=== PATIENT | female | born 1970 | race African-American/Black ===

== ENCOUNTER 2016-12-07 15:32 | Emergency (ER) | payer MEDICAID ==
[~2016-12-07] VITALS: Ht 165.1 cm; Wt 98.0 kg
[~2016-12-07 15:32] MED LIST: ACET-3161 GT; DICL50TA9 PO; HYDR-523 PO; IBUP-1510 PO; TRAM50TA3 PO
[2016-12-07] MEDS ORDERED: KETOROLAC 60MG/2ML VIAL IM ONE (22:15)
[2016-12-07 23:38] VITALS: BP 146/82
== END 2016-12-07 23:39 | disposition home or self-care (01) ==
LOC: ER 21:35
DX: S46.911A Strain of unspecified muscle, fascia and tendon at shoulder and upper arm level, right arm, initial encounter (principal); S29.012A Strain of muscle and tendon of back wall of thorax, initial encounter; G89.29 Other chronic pain; M19.90 Unspecified osteoarthritis, unspecified site; F17.210 Nicotine dependence, cigarettes, uncomplicated; F12.10 Cannabis abuse, uncomplicated; X58.XXXA Exposure to other specified factors, initial encounter; Y93.89 Activity, other specified; Y92.018 Other place in single-family (private) house as the place of occurrence of the external cause
CPT/HCPCS: 81025; 96372; 99283; J1885